=== PATIENT | male | born 1960 | race Caucasian/White ===

== ENCOUNTER 2017-06-10 12:06 | Inpatient (IN) | payer OTHER ==
[~2017-06-10] VITALS: Ht 185.4 cm; Wt 88.6 kg
[2017-06-10] VITALS (8 sets, daily range): BP systolic 84–157; BP diastolic 47–86; PULSE 66–103; TEMP 36.6–37; O2SAT 95–97; Ht 185.4 cm; Wt 88.6 kg
[2017-06-10] MEDS ORDERED: RANI150T3 PO (12:37)
--- NOTE | 2017-06-10 12:40 | EMERGENCY ROOM VISIT NOTE ---
History Report prepared by Joannibravindra: Usha Cao Under the Supervision of: Dr. Ariel Roman D.O. First contact with patient: 12:14 Chief Complaint: OTHER COMPLAINT Stated Complaint: HERNIA History of Present Illness The patient is a 57 year old male who presents to the Emergency Room with complaints of worsening abdominal pain. He reports he has had an umbilical hernia for the past 3 years, and this morning around 0730, it popped out. Neither the patient or [facility] medical staff are able to reduce it, so the patient was brought to the ED. The patient rates his discomfort as an 8.5/10. Movement and palpation worsen his discomfort. Phenergan administered at the [facility] provided minimal relief. The patient denies any history of chronic medical problems and states he takes no daily medications. The last time he ate was around 0730 this morning. He denies any recent fevers or illnesses or other complaints at today's visit. Source of History: patient Onset: 0730 today Position: abdomen Symptom Intensity: 8.5/10 Timing: worsening Modifying Factors (Worsening): movement, other (palpation) Modifying Factors (Relieving): other (Phenergan) Associated Symptoms: No fevers Review of Systems See HPI for pertinent positives & negatives. A total of 10 systems reviewed and were otherwise negative. Past Medical & Surgical Medical Problems: (1) History of umbilical hernia Social History Smoking Status: Never Smoker Alcohol Use: none Drug Use: none Marital Status: single Housing Status: other ([facility]) Occupation Status: unemployed Current/Historical Medications Scheduled Ranitidine Hcl (Zantac), 150 MG PO BID Allergies Coded Allergies: No Known Allergies (Unverified , 06/10/17) Physical Exam Vital Signs Date Time Temp Pulse Resp B/P (MAP) Pulse Ox O2 Delivery O2 Flow Rate FiO2 06/10/17 14:15 89 18 174/96 98 06/10/17 12:11 Room Air Physical Exam GENERAL: Patient is awake, alert, very anxious and uncomfortable appearing. EYES: The conjunctivae are clear. The pupils are round and reactive. EARS, NOSE, MOUTH AND THROAT: The nose is without any evidence of any deformity. Mucous membranes are moist tongue is midline NECK: The neck is nontender and supple. RESPIRATORY: Normal respiratory effort is noted there is no evidence of wheezing rhonchi or rales CARDIOVASCULAR: Regular rate and rhythm noted there no murmurs rubs or gallops normal S1 normal S2 GASTROINTESTINAL: The abdomen is moderately distended and diffusely tender. Large incarcerated umbilical hernia noted to palpation, skin overlying the area was mildly erythematous. MUSCULOSKELETAL/EXTREMITIES: There is no evidence of gross deformity full range of motion is noted in the hips and shoulders SKIN: There is no obvious evidence of any rash. There are no petechiae, pallor or cyanosis noted. NEUROLOGIC: Patient is awake alert and oriented x3 Medical Decision & Procedures ER Provider Diagnostic Interpretation: Radiology results as stated below per my review and radiologist interpretation: CHEST ONE VIEW PORTABLE HISTORY: Generalized abdominal pain. COMPARISON: None. FINDINGS: The lungs are clear. Cardiac silhouette is normal in size. No pleural effusions. No pneumothorax. IMPRESSION: No acute process. Electronically signed by: Hieu Lagunas M.D. 06/10/2017 1:47 PM KUB HISTORY: Transabdominal pain. COMPARISON: None. FINDINGS: The bowel gas pattern is unremarkable. There are no dilated loops of small bowel to suggest an obstruction. A 1.8 cm calcification within the right upper quadrant favors a gallstone. Moderate stool within the colon. No pneumoperitoneum or pneumatosis. IMPRESSION: 1. Moderate stool within the colon. 2. No evidence for bowel obstruction. 3. Cholelithiasis. Electronically signed by: Hieu Lagunas M.D. 06/10/2017 1:46 PM Laboratory Results 06/10/17 13:00 Red Blood Count 5.08, Mean Corpuscular Volume 90.9, Mean Corpuscular Hemoglobin 31.1, Mean Corpuscular Hemoglobin Concent 34.2, Mean Platelet Volume 11.8, Neutrophils (%) (Auto) 89.2, Lymphocytes (%) (Auto) 5.2, Monocytes (%) (Auto) 4.9, Eosinophils (%) (Auto) 0.1, Basophils (%) (Auto) 0.3, Neutrophils # (Auto) 10.34, Lymphocytes # (Auto) 0.60, Monocytes # (Auto) 0.57, Eosinophils # (Auto) 0.01, Basophils # (Auto) 0.03 06/10/17 13:00 Test 06/10/17 13:00 06/10/17 13:05 06/10/17 13:47 White Blood Count 11.59 K/uL (4.8-10.8) Red Blood Count 5.08 M/uL (4.7-6.1) Hemoglobin 15.8 g/dL (14.0-18.0) Hematocrit 46.2 % (42-52) Mean Corpuscular Volume 90.9 fL (80-100) Mean Corpuscular Hemoglobin 31.1 pg (25-34) Mean Corpuscular Hemoglobin Concent 34.2 g/dl (32-36) Platelet Count 157 K/uL (130-400) Mean Platelet Volume 11.8 fL (7.4-10.4) Neutrophils (%) (Auto) 89.2 % Lymphocytes (%) (Auto) 5.2 % Monocytes (%) (Auto) 4.9 % Eosinophils (%) (Auto) 0.1 % Basophils (%) (Auto) 0.3 % Neutrophils # (Auto) 10.34 K/uL (1.4-6.5) Lymphocytes # (Auto) 0.60 K/uL (1.2-3.4) Monocytes # (Auto) 0.57 K/uL (0.11-0.59) Eosinophils # (Auto) 0.01 K/uL (0-0.5) Basophils # (Auto) 0.03 K/uL (0-0.2) RDW Standard Deviation 42.5 fL (36.4-46.3) RDW Coefficient of Variation 12.7 % (11.5-14.5) Immature Granulocyte % (Auto) 0.3 % Immature Granulocyte # (Auto) 0.04 K/uL (0.00-0.02) Prothrombin Time 10.9 SECONDS (9.0-12.0) Prothromb Time International Ratio 1.0 (0.9-1.1) Activated Partial Thromboplast Time 20.3 SECONDS (21.0-31.0) Partial Thromboplastin Ratio 0.8 Anion Gap 10.0 mmol/L (3-11) Est Creatinine Clear Calc Drug Dose 82.7 ml/min Estimated GFR () 85.3 Estimated GFR (Non- 73.6 BUN/Creatinine Ratio 10.9 (10-20) Calcium Level 9.2 mg/dl (8.5-10.1) Total Bilirubin 0.8 mg/dl (0.2-1) Direct Bilirubin mg/dl (0-0.2) Aspartate Amino Transf (AST/SGOT) 26 U/L (15-37) Alanine Aminotransferase (ALT/SGPT) 25 U/L (12-78) Alkaline Phosphatase 62 U/L (45-117) Troponin I < 0.015 ng/ml (0-0.045) Total Protein 6.6 gm/dl (6.4-8.2) Albumin 3.6 gm/dl (3.4-5.0) Lipase 124 U/L (73-393) Urine Color YELLOW Urine Appearance CLEAR (CLEAR) Urine pH >= 9.0 (4.5-7.5) Urine Specific [place] 1.014 (1.000-1.030) Urine Protein NEG (NEG) Urine Glucose (UA) 1+ (NEG) Urine Ketones NEG (NEG) Urine Occult Blood NEG (NEG) Urine Nitrite NEG (NEG) Urine Bilirubin NEG (NEG) Urine Urobilinogen NEG (NEG) Urine Leukocyte Esterase NEG (NEG) Bedside Lactic Acid Venous 2.37 mmol/L (0.90-1.70) Laboratory results per my review. Medications Administered Medications (Trade) Dose Ordered Sig/Jorge Route Start Time Stop Time Status Last Admin Dose Admin Morphine Sulfate (MoRPHine SULFATE INJ) 4 mg Q15M PRN IV 06/10/17 12:45 06/10/17 14:09 DC 06/10/17 13:02 4 MG Ondansetron HCl (Zofran Inj) 4 mg NOW STAT IV 06/10/17 12:41 06/10/17 12:42 DC 06/10/17 13:02 4 MG Sodium Chloride 1,000 ml @ 200 mls/hr Q5H STAT IV 06/10/17 12:41 06/10/17 16:07 DC 06/10/17 13:42 200 MLS/HR Sodium Chloride 1,000 ml @ 999 mls/hr Q1H1M STAT IV 06/10/17 12:41 06/10/17 13:41 DC 06/10/17 13:01 999 MLS/HR Morphine Sulfate (MoRPHine SULFATE INJ) 4 mg Q1H PRN IV 06/10/17 14:15 06/24/17 14:14 06/10/17 17:30 4 MG Bupivacaine HCl/ Epinephrine Bitart (Sensorcaine/ Epinephrine 0.5% Mpf 1:200,000) 20 ml STK-MED ONCE .ROUTE 06/10/17 14:31 06/10/17 14:32 DC 06/10/17 15:09 20 ML Bacitracin (Bacitracin Oint) 45 appln STK-MED ONCE .ROUTE 06/10/17 16:01 06/10/17 16:02 DC 06/10/17 16:01 45 APPLN ED Course 1237: The patient was evaluated in room A2. A complete history and physical examination were performed. 1241: NSS 1000 ml @ 999 mls/hr IV, NSS 1000 ml @ 200 mls/hr IV, Zofran 4 mg IV. 1245: Morphine Sulfate 4 mg IV. 1310: I discussed the patients case with Robin Rosas General Surgery. The patient will be further evaluated. Medical Decision Prior records/ancillary studies reviewed. Triage Nursing notes reviewed. The patient's history was concerning for abdominal pain. Differential diagnosis: Etiologies such as appendicitis, diverticulitis, PUD, biliary pathology, UTI, pancreatitis, obstruction, mesenteric ischemia, aortic pathology, infections, inflammatory bowel disease, renal colic, as well as others were entertained. The patient is a 57-year-old male who presented to the emergency department from the snf for evaluation of abdominal pain and hernia. The patient has a history of an umbilical hernia which normally is easily reduced however since 730 this morning he has been unable to reduce the hernia. He was treated with Phenergan prior to arrival. Attempts to reduce the hernia by myself were unsuccessful. I discussed the patient's laboratory and radiographic studies with her. I also discussed his case with the on-call general surgeon. He was unable to the hernia in the emergency Department so the patient was taken to the operating room for further surgical management. The patient was given IV fluids IV pain medicine and IV antiemetics. On subsequent reevaluation he was feeling minimally improved. Medication Reconcilliation Current Medication List: was personally reviewed by me Blood Pressure Screening Patient's blood pressure: Normal blood pressure Blood pressure disposition: Did not require urgent referral Consults Time Called: 1305 Consulting Physician: Robin Rosas General Surgery Returned Call: 1310 I discussed the patients case with Robin Rosas General Surgery. The patient will be further evaluated. Impression Primary Impression: Umbilical hernia, incarcerated Additional Impression: Abdominal pain Scribe Attestation The scribe's documentation has been prepared under my direction and personally reviewed by me in its entirety. I confirm that the note above accurately reflects all work, treatment, procedures, and medical decision making performed by me. Departure Information Dispostion Being Evaluated By Surgeon Referrals Daniel AMIN (PCP) Patient Instructions My [facility] Health Problem Qualifiers Additional Impression: Abdominal pain Abdominal location: periumbilical Qualified Codes: R10.33 - Periumbilical pain
[2017-06-10] MEDS ORDERED: SODIUM CHLORIDE 0.9% 1000ML 1,000 ML IV STA ×2 (12:41)
[2017-06-10] MEDS ORDERED: ONDANSETRON INJ 2 MG/ML 2 ML VIAL IV STA (12:41)
[2017-06-10] MEDS ORDERED: MoRPHine SULFATE 4 MG/ML 1 ML CARP\\VIAL IV PRN ×2 (12:45→14:15)
[2017-06-10 13:22] LABS: BASO % 0.3 %; BASO ABS # 0.03 K/uL (0-0.2); COMPLETE YES; EOS % 0.1 %; HEMATOCRIT 46.2 % (42-52); IG% 0.3 %; LYMPH % 5.2 %; MEAN CELL VOLUME 90.9 fL (80-100); MEAN CORPUSCULAR HEMOGLOBIN 31.1 pg (25-34); MEAN CORPUSCULAR HGB CONC 34.2 g/dl (32-36); MEAN PLATELET VOLUME 11.8 fL (7.4-10.4); MONO % 4.9 %; NEUT % 89.2 %; PLATELET COUNT 157 K/uL (130-400); RED BLOOD COUNT 5.08 M/uL (4.7-6.1); WHITE BLOOD COUNT 11.59 K/uL (4.8-10.8)
[2017-06-10 13:24] LABS: URINE APPEARANCE CLEAR (CLEAR); URINE BILIRUBIN NEG (NEG); URINE COLOR YELLOW; URINE NITRITE NEG (NEG); URINE PH >= 9.0 (4.5-7.5); URINE SPECIFIC GRAVITY 1.014 (1.000-1.030); UROBILINOGEN NEG (NEG)
[2017-06-10 13:30] LABS: MANUAL MICROSCOPIC REQUIRED? NO; REVIEW REQ? NO
[2017-06-10 13:31] LABS: PARTIAL THROMBOPLASTIN RATIO 0.8; PROTHROMBIN TIME (PATIENT) 10.9 SECONDS (9.0-12.0)
--- NOTE | 2017-06-10 13:48 | DIAGNOSTIC IMAGING REPORT ---
CHEST ONE VIEW PORTABLE HISTORY: Generalized abdominal pain. COMPARISON: None. FINDINGS: The lungs are clear. Cardiac silhouette is normal in size. No pleural effusions. No pneumothorax. IMPRESSION: No acute process. Electronically signed by: Hieu Lagunas M.D. 06/10/2017 1:47 PM Dictated Date/Time: 06/10/2017 1:46 PM
--- NOTE | 2017-06-10 13:48 | DIAGNOSTIC IMAGING REPORT ---
KUB HISTORY: Transabdominal pain. COMPARISON: None. FINDINGS: The bowel gas pattern is unremarkable. There are no dilated loops of small bowel to suggest an obstruction. A 1.8 cm calcification within the right upper quadrant favors a gallstone. Moderate stool within the colon. No pneumoperitoneum or pneumatosis. IMPRESSION: 1. Moderate stool within the colon. 2. No evidence for bowel obstruction. 3. Cholelithiasis. Electronically signed by: Hieu Lagunas M.D. 06/10/2017 1:46 PM Dictated Date/Time: 06/10/2017 1:45 PM
--- NOTE | 2017-06-10 13:53 | History and Physical ---
History & Physical Date Jun 10, 2017. Chief Complaint Painful abdominal bulge/hernia History of Present Illness The patient is a 57 year old male with pain and nausea associated with an incarcerated umbilical hernia. He has had complaints of worsening abdominal pain. He reports he has had an umbilical hernia for the past 3 years. This morning around 0730 his hernia became incarcerated and they were not able to reduce it. The last time he ate was breakfast at 0700 this morning. He denies any recent fevers or illnesses or other complaints at today's visit. 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) Infectious Diseases: No Home Medications Scheduled Ranitidine Hcl (Zantac), 150 MG PO BID Physical Examination Skin: warm/dry, no rash Eyes: normal inspection, EOMI, sclerae normal ENT: normal ENT inspection Head: normocephalic, atraumatic Neck: supple, no adenopathy, trachea midline Respiratory/Chest: lungs clear, no respiratory distress Cardiovascular: regular rate, rhythm, no murmur Abdomen / GI: normal bowel sounds, + pertinent finding (soft; incarcerated, non -reducible large umbilical hernia; good BS, non-distended) Back: normal inspection Extremities: normal inspection Genitourinary - Male: normal male genitalia Neurologic/Psych: no motor/sensory deficits, normal reflexes, oriented x 3 Diagnosis Incarcerated umbilical hernia; non-reducible ASA Classification: ASA Class I Plan of Treatment Plan exploration and reduction and repair of umbilical hernia; possible SB resection -IVF -IV abx
[2017-06-10 13:55] LABS: ALKALINE PHOSPHATASE 62 U/L (45-117); ALT/SGPT 25 U/L (12-78); AST/SGOT 26 U/L (15-37); BLOOD UREA NITROGEN 12 mg/dl (7-18); BUN/CREATININE RATIO 10.9 (10-20); CALCIUM 9.2 mg/dl (8.5-10.1); CARBON DIOXIDE 25 mmol/L (21-32); CHLORIDE 106 mmol/L (98-107); GLUCOSE 139 mg/dl (70-99); POTASSIUM 4.1 mmol/L (3.5-5.1); SODIUM 141 mmol/L (136-145)
[2017-06-10] MEDS ORDERED: MAGNESIUM HYDROXIDE SUSP 30 ML UDC PO PRN (14:00)
[2017-06-10] MEDS ORDERED: ALUMINUM/MAGNESIUM/SIMETH (MAALOX MAX) 30 ML UDC PO PRN (14:00)
[2017-06-10] MEDS ORDERED: ONDANSETRON INJ 2 MG/ML 2 ML VIAL IV ONE (14:00)
[2017-06-10] MEDS ORDERED: ZOLPIDEM TARTRATE 5 MG TAB PO PRN (14:00)
[2017-06-10] MEDS ORDERED: ACETAMINOPHEN 325 MG TAB PO PRN (14:00)
[2017-06-10] MEDS ORDERED: MoRPHine SULFATE 2 MG/ML CARP IV PRN (14:00)
[2017-06-10] MEDS ORDERED: METOCLOPRAMIDE HCL INJ 5 MG/ML 2 ML VIAL IV ONE (14:00)
[2017-06-10] MEDS ORDERED: MIDAZOLAM HCL 1 MG/ML 2ML VIAL ONE (14:07)
[2017-06-10] MEDS ORDERED: LIDOCAINE HCL 2% 2 ML VIAL (20MG/ML) ONE (14:07)
[2017-06-10] MEDS ORDERED: ROCURONIUM BROMIDE 10 MG/ML 5 ML VIAL ONE ×2 (14:07→15:28)
[2017-06-10] MEDS ORDERED: PROPOFOL IV EMULSION 10 MG/ML 20 ML VIAL IV ONE (14:07)
[2017-06-10] MEDS ORDERED: FENTANYL CITRATE INJ 50 MCG/1 ML 2 ML VIAL ONE ×2 (14:08→15:10)
[2017-06-10] MEDS ORDERED: FENTANYL CITRATE INJ 50 MCG/1 ML 2 ML VIAL IV PRN (14:30)
[2017-06-10] MEDS ORDERED: ATROPINE SULFATE 0.1 MG/ML 5ML SYR IV PRN (14:30)
[2017-06-10] MEDS ORDERED: ONDANSETRON INJ 2 MG/ML 2 ML VIAL IV PRN ×2 (14:30→16:15)
[2017-06-10] MEDS ORDERED: CEFAZOLIN 2000 MG/60 ML D5W 60 ML IV SCH (14:30)
[2017-06-10] MEDS ORDERED: EpHEDrine SULFATE INJ 50 MG/ML AMP IV PRN (14:30)
[2017-06-10] MEDS ORDERED: HYDROmorphone INJ 1 MG/ML SYR IV PRN (14:30)
[2017-06-10] MEDS ORDERED: BUPIVACAINE/EPINEPHRINE 0.5% MPF 1:200,000 10 ML VIAL ONE (14:31)
[2017-06-10] MEDS ORDERED: CEFAZOLIN SOD 1 GM VIAL ONE (14:58)
[2017-06-10] MEDS ORDERED: ONDANSETRON INJ 2 MG/ML 2 ML VIAL ONE (15:00)
[2017-06-10] MEDS ORDERED: DEXAMETHASONE SOD INJ 4 MG/ML VIAL ONE (15:00)
[2017-06-10] MEDS ORDERED: SUCCINYLCHOLINE CHLORIDE 20 MG/ML 10 ML VIAL IV ONE (15:12)
[2017-06-10] MEDS ORDERED: HYDROmorphone INJ 2 MG/ML SYR/VIAL ONE (15:14)
[2017-06-10] MEDS ORDERED: PHENYLEPHRINE HCL INJ 10 MG/ML VIAL ONE (15:28)
[2017-06-10] MEDS ORDERED: BACITRACIN OINT 15 GM TUBE ONE (16:01)
--- NOTE | 2017-06-10 16:02 | [facility] Post Operative Brief Note ---
Immediate Operative Summary Operative Date Jun 10, 2017. Pre-Operative Diagnosis Incarcerated Umbilical Hernia Post-Operative Diagnosis Incarcerated Umbilical Hernia Necrotic SB Procedure(s) Performed Repair of incarcerated umbilical hernia; Small Bowell Resection Surgeon Xavier Cellular Equipment Repairer Surgeon(s) None Estimated Blood Loss 75CC Findings Necrotic segment of SB Specimens A: Hernia Sack B: Small Bowel Drains none Anesthesia GETA w/marcaine Complication(s) None Disposition Recovery Room / PACU
[2017-06-10] MEDS ORDERED: ACETAMINOPHEN IV 100 ML IV PRN (16:15)
[2017-06-10] MEDS ORDERED: PROMETHAZINE HCL INJ 25 MG in SODIUM CHLORIDE 0.9% 50ML 50 ML IV PRN (16:15)
--- NOTE | 2017-06-10 16:48 | OPERATIVE REPORT ---
DATE OF OPERATION: 06/10/2017 PREOPERATIVE DIAGNOSIS: Incarcerated periumbilical hernia. POSTOPERATIVE DIAGNOSES: 1. Incarcerated umbilical hernia. 2. Necrotic small bowel. PROCEDURES PERFORMED: 1. Open primary repair of incarcerated umbilical hernia. 2. Small bowel resection with anastomosis. SURGEON: Dr. David Park. RESIDENCE COUNSELOR: None. ANESTHESIA: General endotracheal with 0.5% Marcaine with epinephrine local. ESTIMATED BLOOD LOSS: 75 mL. COMPLICATIONS: None. DRAINS: None. SPECIMENS: 1. Hernia sac. 2. Small bowel resection. INDICATION FOR PROCEDURE: This is a 57-year-old male who was seen in the ER after having his known umbilical hernia become incarcerated. This was unable to be reduced. This was about 7:30 in the morning. He showed in the ER earlier in the afternoon, it was unable to be reduced. I was called and he was taken to the OR urgently to have this explored. He understands the risks of the small bowel resection, recurrence of his hernia, bleeding, wound problems and infection. DESCRIPTION OF PROCEDURE: The patient was taken to the OR and underwent excellent general endotracheal anesthesia. His abdomen was prepped and draped in sterile fashion. He had a large incarcerated hernia which could not be reduced even after anesthesia. A transverse supraumbilical incision was made and dissection was taken down to identify his anterior fascia. Hernia sac was identified. This was carefully dissected and cut into. There was some bloody drainage and obviously necrotic small bowel. Once this was done, my finger was taken down to the edge of the small, probably 2 cm defect. This was opened widely, so that the small bowel and the omentum which was stuck in his hernia sac could be reduced. Once this was done, the hernia sac was dissected away from the fascia and sent for pathologic evaluation. A Lisseth clamp was placed on the piece of small bowel as it was replaced into the peritoneal cavity to see if it would flower picker. While waiting for this, the edges of the fascia were freshened and this was probably about a 5 or 6 cm defect when we got it completely opened. Once this was done, the small bowel was brought back up into the incision. There was a segment of probably 4 inches of small bowel which still did not look viable. Therefore, this was resected using a YFN stapler. The silks were used to tie the mesentery. The 2 ends of the small bowel were then reapproximated and [id number] anastomosis was created with a YFN stapler. The suture lines were reinforced with interrupted silk sutures. The defect was closed with interrupted silk sutures. The anastomosis was wide open and appeared pink and patent. This was then placed down into the peritoneal cavity. A liter of irrigation was used to irrigate out the abdomen. Then attention was turned to repairing the umbilical hernia. This was done with interrupted #1 PDS sutures. Seven separate sutures were placed in a [id number] manner to close the fascia. Once the fascia was closed, the umbilicus was then tacked down to the fascial closure using 2-0 Vicryl. Deep tissues were closed with Vicryls and carlos were used to close the skin. Sterile dressing was applied. He tolerated the procedure well with no complications. He will be extubated and sent to postoperative recovery area for a period of observation and then be sent to the floor for the rest of his care. I attest to the content of the Intraoperative Record and any orders documented therein. Any exception s are noted below.
--- NOTE | 2017-06-10 17:09 | Anesthesiology Progress Note ---
Anesthesia Post Op Note Date & Time Jun 10, 2017 at 17:09 Vital Signs Pain Intensity: 0 Vital Signs Past 12 Hours Date Time Temp Pulse Resp B/P (MAP) Pulse Ox O2 Delivery O2 Flow Rate FiO2 06/10/17 16:55 37.4 20 160/83 72 Room Air 06/10/17 16:45 20 149/83 96 Room Air 06/10/17 16:35 20 159/83 99 Oxymask 5 06/10/17 16:25 22 145/85 100 Oxymask 5 06/10/17 16:15 37.6 22 157/81 100 Oxymask 10 06/10/17 14:15 89 18 174/96 98 06/10/17 12:11 Room Air Notes Mental Status: alert / awake / arousable, participated in evaluation Pt Amnestic to Procedure: Yes Nausea / Vomiting: adequately controlled Pain: adequately controlled Airway Patency, RR, SpO2: stable & adequate BP & HR: stable & adequate Hydration State: stable & adequate Anesthetic Complications: no major complications apparent
[2017-06-10] MEDS: LACTATED RINGER'S 1000ML 1,000 ML IV SCH (19:19)
[2017-06-10] MEDS: FAMOTIDINE IV INJ 20 MG in DEXTROSE 5% 100ML 100 ML IV SCH (20:57)
[2017-06-10] MEDS: CEFAZOLIN IV 2,000 MG in DEXTROSE 5% 50ML 50 ML IV SCH (22:02)
[2017-06-10] MEDS: KETOROLAC TROMETHAMINE 30 MG/ML VIAL IV. PRN (22:10)
[2017-06-11] VITALS (8 sets, daily range): BP systolic 62–130; BP diastolic 44–79; PULSE 71–117; TEMP 36.4–37.2; O2SAT 94–97
[2017-06-11] MEDS: LACTATED RINGER'S 1000ML 1,000 ML IV SCH ×3 (01:38→18:05)
--- NOTE | 2017-06-11 05:25 | Surgery Progress Note ---
Surgery Progress Note Date of Service Jun 11, 2017. Subjective Post OP Day: 1 + feeling well, + complaints (pain controlled), + diet (begin sips), No bowel movement, No flatus, No nausea, No vomiting Objective Vital Signs: Date Time Temp Pulse Resp B/P (MAP) Pulse Ox O2 Delivery O2 Flow Rate FiO2 06/11/17 03:55 37.2 100 16 114/71 (85) 97 Room Air 06/11/17 01:38 94 103/68 (80) 06/11/17 01:33 62/44 (50) 06/11/17 01:30 117 93/58 (70) 06/10/17 23:30 Room Air 06/10/17 22:50 36.9 95 16 113/69 (84) 97 Room Air 06/10/17 21:22 99/64 (76) 06/10/17 21:19 98 84/47 (59) 06/10/17 20:20 37.0 103 16 117/78 (91) 96 Room Air 06/10/17 19:17 36.6 99 16 117/72 (87) 96 Room Air 06/10/17 18:23 36.8 93 18 135/84 (101) 96 Room Air 06/10/17 17:45 36.8 72 18 138/86 (103) 95 Room Air 06/10/17 17:20 Room Air 06/10/17 17:20 Room Air 06/10/17 17:15 36.8 66 16 157/66 (96) 95 Room Air 06/10/17 16:55 37.4 20 160/83 72 Room Air 06/10/17 16:45 20 149/83 96 Room Air 06/10/17 16:35 20 159/83 99 Oxymask 5 06/10/17 16:25 22 145/85 100 Oxymask 5 06/10/17 16:15 37.6 22 157/81 100 Oxymask 10 06/10/17 14:15 89 18 174/96 98 06/10/17 12:11 Room Air General Appearance: WD/WN, no apparent distress Head: normocephalic, atraumatic Neck: supple, trachea midline Respiratory/Chest: lungs clear Cardiovascular: regular rate, rhythm Abdomen: normal bowel sounds, non distended, soft, + tenderness (moderate) Incision(s): clean, dry, intact Extremities: non-tender, no pedal edema Laboratory Results: Results Past 24 Hours Test 06/10/17 13:00 06/10/17 13:05 06/10/17 13:47 06/11/17 04:44 Range/Units White Blood Count 11.59 4.8-10.8 K/uL Red Blood Count 5.08 4.7-6.1 M/uL Hemoglobin 15.8 14.0-18.0 g/dL Hematocrit 46.2 42-52 % Mean Corpuscular Volume 90.9 80-100 fL Mean Corpuscular Hemoglobin 31.1 25-34 pg Mean Corpuscular Hemoglobin Concent 34.2 32-36 g/dl Platelet Count 157 130-400 K/uL Mean Platelet Volume 11.8 7.4-10.4 fL Neutrophils (%) (Auto) 89.2 % Lymphocytes (%) (Auto) 5.2 % Monocytes (%) (Auto) 4.9 % Eosinophils (%) (Auto) 0.1 % Basophils (%) (Auto) 0.3 % Neutrophils # (Auto) 10.34 1.4-6.5 K/uL Lymphocytes # (Auto) 0.60 1.2-3.4 K/uL Monocytes # (Auto) 0.57 0.11-0.59 K/uL Eosinophils # (Auto) 0.01 0-0.5 K/uL Basophils # (Auto) 0.03 0-0.2 K/uL RDW Standard Deviation 42.5 36.4-46.3 fL RDW Coefficient of Variation 12.7 11.5-14.5 % Immature Granulocyte % (Auto) 0.3 % Immature Granulocyte # (Auto) 0.04 0.00-0.02 K/uL Prothrombin Time 10.9 9.0-12.0 SECONDS Prothromb Time International Ratio 1.0 0.9-1.1 Activated Partial Thromboplast Time 20.3 21.0-31.0 SECONDS Partial Thromboplastin Ratio 0.8 Sodium Level 141 136-145 mmol/L Potassium Level 4.1 3.5-5.1 mmol/L Chloride Level 106 98-107 mmol/L Carbon Dioxide Level 25 21-32 mmol/L Anion Gap 10.0 3-11 mmol/L Blood Urea Nitrogen 12 7-18 mg/dl Creatinine 1.10 0.60-1.40 mg/dl Est Creatinine Clear Calc Drug Dose 82.7 ml/min Estimated GFR () 85.3 Estimated GFR (Non- 73.6 BUN/Creatinine Ratio 10.9 10-20 Random Glucose 139 70-99 mg/dl Calcium Level 9.2 8.5-10.1 mg/dl Total Bilirubin 0.8 0.2-1 mg/dl Direct Bilirubin 0-0.2 mg/dl Aspartate Amino Transf (AST/SGOT) 26 15-37 U/L Alanine Aminotransferase (ALT/SGPT) 25 12-78 U/L Alkaline Phosphatase 62 45-117 U/L Troponin I < 0.015 0-0.045 ng/ml Total Protein 6.6 6.4-8.2 gm/dl Albumin 3.6 3.4-5.0 gm/dl Lipase 124 73-393 U/L Urine Color YELLOW Urine Appearance CLEAR CLEAR Urine pH >= 9.0 4.5-7.5 Urine Specific [place] 1.014 1.000-1.030 Urine Protein NEG NEG Urine Glucose (UA) 1+ NEG Urine Ketones NEG NEG Urine Occult Blood NEG NEG Urine Nitrite NEG NEG Urine Bilirubin NEG NEG Urine Urobilinogen NEG NEG Urine Leukocyte Esterase NEG NEG Bedside Lactic Acid Venous 2.37 0.90-1.70 mmol/L Assessment & Plan s/p ex lap with SB resection for incarcerated umbilical hernia -begin sips -ambulate -good pain control
[2017-06-11] MEDS: CEFAZOLIN IV 2,000 MG in DEXTROSE 5% 50ML 50 ML IV SCH ×3 (05:57→21:44)
[2017-06-11] MEDS: KETOROLAC TROMETHAMINE 30 MG/ML VIAL IV. PRN ×2 (06:01→19:35)
[2017-06-11 07:36] LABS: BUN/CREATININE RATIO 16.4 (10-20); CALCIUM 8.2 mg/dl (8.5-10.1); CREATININE 1.1 mg/dl (0.60-1.40); POTASSIUM 4.5 mmol/L (3.5-5.1)
[2017-06-11 07:41] LABS: ALB/GLOB RATIO 1.1 (0.9-2)
[2017-06-11 07:58] LABS: BASO % 0.1 %; BASO ABS # 0.01 K/uL (0-0.2); COMPLETE YES; HEMATOCRIT 35.1 % (42-52); IG% 0.3 %; LYMPH % 7.6 %; LYMPH ABS # 1.28 K/uL (1.2-3.4); MEAN CELL VOLUME 93.1 fL (80-100); MEAN CORPUSCULAR HGB CONC 33.3 g/dl (32-36); MEAN PLATELET VOLUME 10.9 fL (7.4-10.4); MONO % 9.7 %; NEUT % 82.3 %; PLATELET COUNT 166 K/uL (130-400); RED BLOOD COUNT 3.77 M/uL (4.7-6.1); WHITE BLOOD COUNT 16.76 K/uL (4.8-10.8)
[2017-06-11] MEDS: FAMOTIDINE IV INJ 20 MG in DEXTROSE 5% 100ML 100 ML IV SCH ×2 (08:48→20:42)
[2017-06-11] MEDS ORDERED: COUGH DROP (SUGAR FREE) LOZ 24 LOZ/1 BOX ONE (15:44)
[2017-06-11] MEDS ORDERED: NURSING DECISION MEDICATION ORDER SCH (15:45)
[2017-06-11] MEDS ORDERED: COUGH DROP (SUGAR FREE) LOZ 24 LOZ/1 BOX PO PRN (16:00)
[2017-06-12] MEDS: LACTATED RINGER'S 1000ML 1,000 ML IV SCH ×3 (02:05→17:40)
[2017-06-12] MEDS: CEFAZOLIN IV 2,000 MG in DEXTROSE 5% 50ML 50 ML IV SCH ×3 (05:29→22:09)
[2017-06-12 07:18] LABS: BASO % 0.2 %; BASO ABS # 0.02 K/uL (0-0.2); COMPLETE YES; EOS % 0.2 %; HEMATOCRIT 34.2 % (42-52); IG% 0.3 %; LYMPH % 12.6 %; LYMPH ABS # 1.38 K/uL (1.2-3.4); MEAN CELL VOLUME 93.2 fL (80-100); MEAN CORPUSCULAR HEMOGLOBIN 30.8 pg (25-34); MEAN PLATELET VOLUME 11.2 fL (7.4-10.4); MONO % 11.4 %; NEUT % 75.3 %; PLATELET COUNT 162 K/uL (130-400); RED BLOOD COUNT 3.67 M/uL (4.7-6.1); WHITE BLOOD COUNT 10.99 K/uL (4.8-10.8)
[2017-06-12] MEDS: OXYCODONE/ACETAMINOPHEN 5-325 TAB PO PRN ×4 (07:43→23:34)
[2017-06-12 07:48] LABS: BUN/CREATININE RATIO 21.2 (10-20); CALCIUM 7.9 mg/dl (8.5-10.1); CREATININE 0.99 mg/dl (0.60-1.40); POTASSIUM 4.1 mmol/L (3.5-5.1)
[2017-06-12 08:02] VITALS: BP 123/76; PULSE 79; TEMP 36.7; O2SAT 96
[2017-06-12] MEDS: FAMOTIDINE IV INJ 20 MG in DEXTROSE 5% 100ML 100 ML IV SCH ×2 (08:52→21:05)
--- NOTE | 2017-06-12 09:46 | Surgery Progress Note ---
Surgery Progress Note Date of Service Jun 12, 2017. Subjective Post OP Day: 2 + feeling well, + pain controlled, + diet (tolerating sips), No complaints, No chest pain, No SOB, No bowel movement, No flatus, No nausea, No vomiting Objective Vital Signs: Date Time Temp Pulse Resp B/P (MAP) Pulse Ox O2 Delivery O2 Flow Rate FiO2 06/12/17 08:02 36.7 79 16 123/76 (92) 96 Room Air 06/12/17 08:00 Room Air 06/11/17 23:30 Room Air 06/11/17 22:45 36.9 81 16 130/79 (96) 96 Room Air 06/11/17 15:30 36.9 77 18 123/72 (89) 96 Room Air 06/11/17 15:15 Room Air 06/11/17 12:00 36.4 71 18 125/73 (90) 94 Room Air General Appearance: WD/WN, no apparent distress Head: normocephalic, atraumatic Neck: trachea midline Respiratory/Chest: no respiratory distress, no accessory muscle use Abdomen: non tender, non distended, soft, no organomegaly, + abnormal bowel sounds (hypoactive) Incision(s): clean, dry, intact, no erythema, no drainage, findings (carlos intact) Laboratory Results: Results Past 24 Hours Test 06/12/17 06:19 Range/Units White Blood Count 10.99 4.8-10.8 K/uL Red Blood Count 3.67 4.7-6.1 M/uL Hemoglobin 11.3 14.0-18.0 g/dL Hematocrit 34.2 42-52 % Mean Corpuscular Volume 93.2 80-100 fL Mean Corpuscular Hemoglobin 30.8 25-34 pg Mean Corpuscular Hemoglobin Concent 33.0 32-36 g/dl Platelet Count 162 130-400 K/uL Mean Platelet Volume 11.2 7.4-10.4 fL Neutrophils (%) (Auto) 75.3 % Lymphocytes (%) (Auto) 12.6 % Monocytes (%) (Auto) 11.4 % Eosinophils (%) (Auto) 0.2 % Basophils (%) (Auto) 0.2 % Neutrophils # (Auto) 8.29 1.4-6.5 K/uL Lymphocytes # (Auto) 1.38 1.2-3.4 K/uL Monocytes # (Auto) 1.25 0.11-0.59 K/uL Eosinophils # (Auto) 0.02 0-0.5 K/uL Basophils # (Auto) 0.02 0-0.2 K/uL RDW Standard Deviation 44.3 36.4-46.3 fL RDW Coefficient of Variation 13.1 11.5-14.5 % Immature Granulocyte % (Auto) 0.3 % Immature Granulocyte # (Auto) 0.03 0.00-0.02 K/uL Sodium Level 139 136-145 mmol/L Potassium Level 4.1 3.5-5.1 mmol/L Chloride Level 107 98-107 mmol/L Carbon Dioxide Level 26 21-32 mmol/L Anion Gap 6.0 3-11 mmol/L Blood Urea Nitrogen 21 7-18 mg/dl Creatinine 0.99 0.60-1.40 mg/dl Est Creatinine Clear Calc Drug Dose 91.9 ml/min Estimated GFR () 96.9 Estimated GFR (Non- 83.6 BUN/Creatinine Ratio 21.2 10-20 Random Glucose 105 70-99 mg/dl Calcium Level 7.9 8.5-10.1 mg/dl Total Bilirubin 0.6 0.2-1 mg/dl Aspartate Amino Transf (AST/SGOT) 23 15-37 U/L Alanine Aminotransferase (ALT/SGPT) 16 12-78 U/L Alkaline Phosphatase 45 45-117 U/L Total Protein 5.0 6.4-8.2 gm/dl Albumin 2.5 3.4-5.0 gm/dl Globulin 2.5 2.5-4.0 gm/dl Albumin/Globulin Ratio 1.0 0.9-2 Assessment & Plan POD # 2 s/p ex lap with SB resection, repair of incarcerated hernia - vitals stable - leukocytosis improving -no return of bowel function Plan: Continue Pain management as needed (Iv Tylenol, Morphine and PO Percocet) Continue Iv fluids Continue IV abx Continue sips Continue SCDs Repeat am labs will recheck later today, if return of bowel function may start some clear liquids Dr. Park has seen and examined patient,agrees with above Addendum 5:15 pm Patient still has not passed flatus Drainage from umbilicus, serosanguineous Will place dressing in umbilicus and change daily will evaluate in am
[2017-06-12 15:45] VITALS: BP 117/73; PULSE 77; TEMP 36.9; O2SAT 95
[2017-06-12 23:15] VITALS: BP 123/75; PULSE 72; TEMP 36.9; O2SAT 96
[2017-06-13] MEDS: LACTATED RINGER'S 1000ML 1,000 ML IV SCH ×3 (02:06→18:00)
[2017-06-13] MEDS: OXYCODONE/ACETAMINOPHEN 5-325 TAB PO PRN (03:46)
[2017-06-13] MEDS: CEFAZOLIN IV 2,000 MG in DEXTROSE 5% 50ML 50 ML IV SCH ×3 (05:52→22:02)
[2017-06-13] MEDS: KETOROLAC TROMETHAMINE 30 MG/ML VIAL IV. PRN (05:53)
[2017-06-13 06:18] LABS: MEAN CELL VOLUME 92.6 fL (80-100); MEAN CORPUSCULAR HEMOGLOBIN 30.2 pg (25-34); MEAN CORPUSCULAR HGB CONC 32.6 g/dl (32-36); MEAN PLATELET VOLUME 10.7 fL (7.4-10.4); PLATELET COUNT 164 K/uL (130-400); RED BLOOD COUNT 3.67 M/uL (4.7-6.1); WHITE BLOOD COUNT 8.34 K/uL (4.8-10.8)
[2017-06-13 07:01] VITALS: BP 131/82; PULSE 81; TEMP 36.7; O2SAT 95
--- NOTE | 2017-06-13 07:05 | Surgery Progress Note ---
Surgery Progress Note Date of Service Jun 13, 2017. Subjective Post OP Day: 3 + feeling well, + diet (sips), No complaints, No bowel movement, No nausea, No vomiting Objective Vital Signs: Date Time Temp Pulse Resp B/P (MAP) Pulse Ox O2 Delivery O2 Flow Rate FiO2 06/12/17 23:15 36.9 72 16 123/75 (91) 96 Room Air 06/12/17 19:35 Room Air 06/12/17 15:45 36.9 77 16 117/73 (88) 95 Room Air 06/12/17 08:02 36.7 79 16 123/76 (92) 96 Room Air 06/12/17 08:00 Room Air General Appearance: WD/WN, no apparent distress Head: normocephalic, atraumatic Neck: supple, trachea midline Respiratory/Chest: lungs clear Cardiovascular: regular rate, rhythm Abdomen: normal bowel sounds, soft, + distended, + tenderness (mild) Incision(s): clean, dry, intact Extremities: non-tender, no pedal edema Laboratory Results: Results Past 24 Hours Test 06/13/17 05:26 Range/Units White Blood Count 8.34 4.8-10.8 K/uL Red Blood Count 3.67 4.7-6.1 M/uL Hemoglobin 11.1 14.0-18.0 g/dL Hematocrit 34.0 42-52 % Mean Corpuscular Volume 92.6 80-100 fL Mean Corpuscular Hemoglobin 30.2 25-34 pg Mean Corpuscular Hemoglobin Concent 32.6 32-36 g/dl RDW Standard Deviation 43.0 36.4-46.3 fL RDW Coefficient of Variation 12.6 11.5-14.5 % Platelet Count 164 130-400 K/uL Mean Platelet Volume 10.7 7.4-10.4 fL Assessment & Plan s/p ex lap with SB resection for incarcerated umbilical hernia -begin clears -ambulate -await bowel function to return -good pain control
[2017-06-13 07:29] VITALS: O2SAT 96
[2017-06-13] MEDS: FAMOTIDINE IV INJ 20 MG in DEXTROSE 5% 100ML 100 ML IV SCH ×2 (08:59→20:40)
[2017-06-13 15:46] VITALS: BP 124/75; PULSE 85; TEMP 36.8; O2SAT 96
[2017-06-13 22:45] VITALS: BP 127/75; PULSE 91; TEMP 36.6; O2SAT 95
[2017-06-14] MEDS: LACTATED RINGER'S 1000ML 1,000 ML IV SCH ×2 (02:41→13:58)
[2017-06-14] MEDS: CEFAZOLIN IV 2,000 MG in DEXTROSE 5% 50ML 50 ML IV SCH ×3 (05:41→23:01)
[2017-06-14 07:10] VITALS: BP 131/76; PULSE 79; TEMP 36.6; O2SAT 95
--- NOTE | 2017-06-14 07:11 | Surgery Progress Note ---
Surgery Progress Note Date of Service Jun 14, 2017. Subjective Post OP Day: 4 + feeling well, + complaints, + bowel movement, + flatus, + nausea, + diet ( clears), No vomiting Objective Vital Signs: Date Time Temp Pulse Resp B/P (MAP) Pulse Ox O2 Delivery O2 Flow Rate FiO2 06/13/17 23:50 Room Air 06/13/17 22:45 36.6 91 16 127/75 (92) 95 Room Air 06/13/17 16:15 Room Air 06/13/17 15:46 36.8 85 18 124/75 (91) 96 Room Air 06/13/17 07:29 96 Room Air General Appearance: WD/WN, no apparent distress Head: normocephalic, atraumatic Neck: supple, trachea midline Respiratory/Chest: lungs clear Cardiovascular: regular rate, rhythm Abdomen: normal bowel sounds, non distended, soft, + tenderness (mild) Incision(s): clean, dry, intact Extremities: non-tender, no pedal edema Assessment & Plan s/p ex lap with SB resection for incarcerated umbilical hernia -afebrile -begin fulls -ambulate -possibly home tomorrow after takes regular diet -IV abx -good pain control
[2017-06-14 08:30] VITALS: O2SAT 95
[2017-06-14] MEDS: FAMOTIDINE IV INJ 20 MG in DEXTROSE 5% 100ML 100 ML IV SCH ×2 (08:40→22:10)
[2017-06-14 15:38] VITALS: BP 143/78; PULSE 90; TEMP 36.4; O2SAT 97
[2017-06-14 23:28] VITALS: BP 116/71; PULSE 80; TEMP 36.5; O2SAT 95
[2017-06-15] MEDS: CEFAZOLIN IV 2,000 MG in DEXTROSE 5% 50ML 50 ML IV SCH ×2 (05:35→13:35)
[2017-06-15 06:57] VITALS: BP 149/78; PULSE 69; TEMP 36.7; O2SAT 97
--- NOTE | 2017-06-15 07:21 | Surgery Progress Note ---
Surgery Progress Note Date of Service Jun 15, 2017. Subjective Post OP Day: 5 + feeling well, + bowel movement, + flatus, + diet (fulls), No complaints, No nausea, No vomiting Objective Vital Signs: Date Time Temp Pulse Resp B/P (MAP) Pulse Ox O2 Delivery O2 Flow Rate FiO2 06/15/17 06:57 36.7 69 18 149/78 (101) 97 Room Air 06/15/17 00:43 Room Air 06/14/17 23:28 36.5 80 16 116/71 (86) 95 Room Air 06/14/17 16:30 Room Air 06/14/17 15:38 36.4 90 16 143/78 (99) 97 Room Air 06/14/17 08:30 95 Room Air General Appearance: WD/WN, no apparent distress Head: normocephalic, atraumatic Neck: supple, trachea midline Respiratory/Chest: chest non-tender, lungs clear Cardiovascular: regular rate, rhythm Abdomen: normal bowel sounds, non tender, non distended Incision(s): clean, dry, intact Extremities: non-tender, no pedal edema Assessment & Plan s/p ex lap with SB resection for incarcerated umbilical hernia -afebrile -begin regular -doing well -discharge -good pain control
[2017-06-15] MEDS ORDERED: OXYC-57 PO (07:22)
--- NOTE | 2017-06-15 07:27 | Discharge Instructions ---
Discharge Instructions Date of Service Jun 15, 2017. Admission Reason for Admission: Umbilical Hernia,Incarcerated Discharge Discharge Diagnosis / Problem: Incarcerated umbilical hernia; small bowel ischemia Discharge Goals Goal(s): Therapeutic intervention Activity Recommendations Activity Limitations: per Instructions/Follow-up section Lifting Limitations: no more than 25 pounds (No strenuous activity; 6 weeks) Exercise/Sports Limitations: until after follow-up appointment Shower/Bathe: no limitations (shower preferentially) Driving or Machine Use: no limitations . Instructions / Follow-Up Instructions / Follow-Up Dr Park; 2 weeks; [id number] Current Hospital Diet Patient's current hospital diet: Regular Diet Discharge Diet Recommended Diet: Regular Diet Procedures Procedures Performed: Repair of incarcerated umbilical hernia; Small Bowell Resection Pending Studies Studies pending at discharge: no Work Instructions Return To Work: after follow-up Lifting Limitations: no more than 20 pounds Additional Instructions: 6 weeks of no strenuous activity; no lifting or strenuouos play or work Medical Emergencies . Who to Call and When: Medical Emergencies: If at any time you feel your situation is an emergency, please call 911 immediately. . Non-Emergent Contact Non-Emergency issues call your: Primary Care Provider, Surgeon Call Non-Emergent contact if: temperature is above 101.5, your pain is worsening, wound has increased redness, wound has increased pain, you have any medication questions . "Provider Documentation" section prepared by David Park. . VTE Core Measure Inpt VTE Proph given/why not?: SCD's [place] Drug Monitoring Program Search Results: patient reviewed within database
[2017-06-15] MEDS: FAMOTIDINE IV INJ 20 MG in DEXTROSE 5% 100ML 100 ML IV SCH (08:24)
--- NOTE | 2017-06-15 10:48 | DISCHARGE SUMMARY ---
DATE OF DISCHARGE: 06/15/2017 DIAGNOSES: 1. Incarcerated umbilical hernia. 2. Ischemic small bowel. 3. Gastroesophageal reflux disease. ATTENDING PHYSICIAN: Dr. David Park. PROCEDURES PERFORMED: On 06/10/2017 open umbilical hernia repair with small bowel resection. HISTORY OF PRESENT ILLNESS: This is a 57-year-old male who had a known umbilical hernia who had about 7 hours of complaints of abdominal pain and inability to reduce his umbilical hernia. He was brought to the Emergency Room and evaluated. He had tenderness on exam and therefore will be taken to the OR for exploration and repair of his hernia. HOSPITAL COURSE: The patient was admitted, given IV fluids, IV antibiotics, taken straight to the. His hernia was entered and there was a small loop of ischemic small bowel. The hernia was opened wider, small bowel was placed in his peritoneal cavity. While edges of the hernia were refreshed there was an area which was ischemic and therefore it was resected. He had a [id number] stapled anastomosis. The hernia was repaired with interrupted #1 PDS sutures. He tolerated the procedure well. NG tube was not placed postoperatively. He was maintained on IV fluids, IV antibiotics. He continued to progress with his diet and activity and was discharged home on postoperative day #5. DISCHARGE MEDICATIONS: Percocet 1 tablet p.o. q. 6 hours p.r.n. pain #30, Zantac 150 mg p.o. b.i.d. DIET: Regular as tolerated. ACTIVITIES: No strenuous activity for 6 weeks. Follow up 2 weeks in my office.
== END 2017-06-15 14:30 | DRG 330 ==
LOC: C.EDB 12:10 → ENRESERV 14:56 → C.MSN 16:07
PROVIDERS: ADMIT Surgery; ATTEND Surgery
PROC: 0DB80ZZ Excision of Small Intestine, Open Approach (ICD-10-PCS; principal; 2017-06-10 14:30)
PROC: 0WQF0ZZ Repair Abdominal Wall, Open Approach (ICD-10-PCS; principal; 2017-06-10 14:30)
DX: K42.9 Umbilical hernia without obstruction or gangrene (principal); K55.9 Vascular disorder of intestine, unspecified; D69.3 Immune thrombocytopenic purpura; K44.9 Diaphragmatic hernia without obstruction or gangrene; Z79.899 Other long term (current) drug therapy